=== PATIENT | male | born 1960 | race Caucasian/White ===

== ENCOUNTER 2019-04-15 10:50 | Day surgery (SDC) | payer MEDICARE, MEDICAID ==
[~2019-04-15 10:50] MED LIST: BUPIVACAINE HCL 0.75% INJ/PF (7.5 MG/1 ML) 10 ML SDV OS PRN; FENTANYL CITRATE INJ/PF 100 MCG/2 ML AMPUL ONE; KETOROLAC TROMETHAMINE 0.45% 4 DROP/0.4 ML DROPERETTE OS PRN; LIDOCAINE 4% INJ/PF (40 MG/ML) 5 ML AMPUL OS PRN; MIDAZOLAM 2 MG/2 ML INJ ONE; PROPOFOL INJ 200 MG/20 ML VIAL IV ONE
[2019-04-15] MEDS ORDERED: TRYPAN BLUE 0.06 % OPH SOLN 0.5 ML DISP.SYRIN ONE (11:32)
[2019-04-15] MEDS ORDERED: LIDOCAINE 1% INJ-PF (10 MG/ML) 30 ML SDV ONE (11:32)
[2019-04-15] MEDS ORDERED: BUPIVACAINE HCL 0.75% INJ/PF (7.5 MG/1 ML) 10 ML SDV ONE (11:32)
[2019-04-15] MEDS ORDERED: HYALURONIDASE INJ 150 UNIT/1 ML VIAL ONE (11:32)
[2019-04-15] MEDS ORDERED: LIDOCAINE 2% INJ-PF (20 MG/ML) 10 ML AMPUL ONE (11:42)
[2019-04-15] MEDS: TROPICAMIDE 1% OPH SOLN 3 ML OS PRN ×3 (11:48→12:08)
[2019-04-15] MEDS: CYCLOPENTOLATE 0.2%/PHENYLEPHRINE 1% OPH SOLN 2 ML OS PRN ×3 (11:48→12:08)
[2019-04-15] MEDS: BESIFLOXACIN HCL 0.6% OPH SUSP 5 ML BOTTLE OS PRN ×2 (11:48→12:08)
[2019-04-15] MEDS: TETRACAINE HCL 0.5% OPH SOLN 4 ML OS PRN ×3 (11:49→12:42)
[2019-04-15] MEDS ORDERED: CHONDR SU A NA/HYALUR INTRAOC KIT (SURGICARE) ONE (13:18)
[2019-04-15] MEDS ORDERED: CHONDR SU A NA/HYALUR SOD 0.5 ML DISP.SYRIN ONE ×2 (13:31→13:35)
[2019-04-15] MEDS ORDERED: EPINEPHRINE INJ/PF 1 MG/1 ML AMPULE ONE (13:31)
[2019-04-15] MEDS ORDERED: TOBRAMYCIN SULFATE/DEXAMETH OPH OINTMENT 3.5 GM ONE (13:35)
[2019-04-15] MEDS: DORZOLAMIDE HCL 2%/TIMOLOL MALEAT 0.5% OPH SOLN 10 ML OS PRN ×2 (13:42)
--- NOTE | 2019-04-15 14:30 | Operative Report ---
Operative Report-[facility] Operative Report: DATE OF SURGERY: 04/15/2019 PREOPERATIVE DIAGNOSIS: CATARACT, LEFT EYE. POSTOPERATIVE DIAGNOSIS: CATARACT, LEFT EYE. PROCEDURE PERFORMED: Manual complex cataract Extraction WITH POSTERIOR CHAMBER INTRAOCULAR LENS, LEFT EYE. Intraocular Lens Model : SN 60 WF 25.0 SURGEON: SALOMÓN BUENROSTRO MD ANESTHESIA: Retrobulbar block WITH MAC. INDICATIONS FOR SURGERY: No view of fundus unable to see faces INDICATIONS FOR COMPLEX: Mature cataract with no red reflex PROCEDURE: The patient was brought to the Operating Room and placed on the operative table. A retrobulbar block was administered consisting of 4 cc of 0.75% Marcaine mixed with 2% lidocaine and Wydase. Pressure was placed on the eye for approximately 5 minutes. The eye was sterilely prepped and draped in the usual manner. Lid speculum was placed in the eye. 4-0 black silk sutures were placed around the superior and the inferior rectus muscles to be used as traction. A conjunctival peritomy was made superiorly. Hemostasis was obtained with bipolar cautery. Calipers were used to caitlin a 7 mm superior incision. A crescent blade was used to create the incision approximately 2 mm posterior to limbus and dissected anteriorly. The incision was extended medially and laterally at the corneal side of the incision making it larger internally. A sharp point blade was used to create a paracentesis site at the 2 o'clock position. A syringe with a air was injected through the side-port incision and trypan blue dye was injected inferiorly to the air bubble. Viscoelastic was injected into the anterior chamber. A 2.4 mm incision was made at the 9 o'clock position. A superior corneal incision was made through the groove extending the full length of the incision. An anterior capsulotomy was performed using Utrata forceps in a capsulorrhexis fashion. Hydrodissection was performed. Using the cystitome the lens was rotated into the anterior chamber and viscoelastic was placed under the lens and on top of the lens. An irrigating vectis was placed under the lens and the lens was gently expressed through the incision. Following this, the I/A unit was used to remove residual cortex through the 9 oclock incision. Viscoelastic was injected into the capsular bag. The Intraocular lens was placed in the capsular bag. The I/A unit was used to remove residual viscoelastic. The superior incision was not watertight so running X style sutures were placed through the superior incision. The conjunctiva was reapproximated over the superior incision. The pressure was adjusted in the eye to normal pressure. The 4-0 black silk sutures and lid speculum were removed. The eye was shielded after Besivance and Cosopt drops were placed. The patient tolerated the procedure well and was sent to the Recovery Room in good condition.
--- NOTE | 2019-04-15 14:31 | PDOC DISCHARGE SUMMARY ---
Discharge Summary-[facility] Discharge Summary: DATE: 04/15/2019 FINAL DIAGNOSIS: CATARACT, LEFT EYE PROCEDURE: Complex cataract surgery with manual expression and intraocular lens implant left eye HOSPITAL COURSE: The patient will be discharged to home. The patient is instructed to resume preoperative medications, take Tylenol as needed for discomfort, to keep the eye shielded, They should use the prescribed antibiotic, NSAID, and steroid at 3 PM and 8 PM, and to follow up in my office in 1 day.
== END 2019-04-15 14:15 | disposition home or self-care (01) ==
LOC: SC 10:50
PROVIDERS: ATTEND Ophthalmology
DX: H25.22 Age-related cataract, morgagnian type, left eye (principal); H25.811 Combined forms of age-related cataract, right eye; H57.04 Mydriasis; H52.01 Hypermetropia, right eye; Z71.41 Alcohol abuse counseling and surveillance of alcoholic; I10 Essential (primary) hypertension; K21.9 Gastro-esophageal reflux disease without esophagitis; Z79.899 Other long term (current) drug therapy
CPT/HCPCS: 66984; J2250; J3490 ×9; A9270; J0171; J3010; J2704; J3470; V2632